=== PATIENT | female | born 2000 | race Caucasian/White ===

== ENCOUNTER 2020-03-14 12:40 | Emergency (ER) | payer OTHER ==
[~2020-03-14] VITALS: Ht 175.3 cm; Wt 91.9 kg
[2020-03-14] MEDS ORDERED: NS 1,000 ML IV ONE (14:30)
[2020-03-14 15:00] VITALS: BP 118/68
--- NOTE | 2020-03-14 16:22 | REP ---
LEFT ELBOW, FOUR VIEWS: There is no evidence of an acute fracture, dislocation, or intrinsic bone disease. IMPRESSION: No fracture or dislocation. Electronically Signed by Clement Tatum MD 03/18/2020 09:07 A
== END 2020-03-14 14:56 | disposition home or self-care (01) ==
LOC: M ED 12:40
DX: M25.522 Pain in left elbow (principal); Z87.828 Personal history of other (healed) physical injury and trauma; Z98.890 Other specified postprocedural states